=== PATIENT | male | born 1965 | race Caucasian/White ===

== ENCOUNTER 2018-11-03 07:40 | Day surgery (SDC) | payer OTHER ==
[~2018-11-03] VITALS: Ht 172.7 cm; Wt 90.3 kg
[~2018-11-03 07:40] MED LIST: AMLODIPINE
[2018-11-03] MEDS ORDERED: LIDOCAINE 4% SOLUTION 50 ML BTL ONE (08:14)
[2018-11-03 08:22] VITALS: Ht 172.7 cm; Wt 90.3 kg
[2018-11-03 08:30] VITALS: BP 117/79; PULSE 65; RESP 18
[2018-11-03] MEDS ORDERED: FENTAnyl 50 MCG/ML VIAL ONE (09:28)
[2018-11-03] MEDS ORDERED: MIDAZOLAM 1 MG/ML 2 ML INJ ONE ×3 (09:29)
[2018-11-03 09:40] VITALS: BP 123/82; RESP 20
== END 2018-11-03 12:58 | disposition home or self-care (01) ==
LOC: GIL 07:40
PROVIDERS: ATTEND Internal Medicine Gastroenterology
DX: Z12.11 Encounter for screening for malignant neoplasm of colon (principal); K64.0 First degree hemorrhoids; K29.30 Chronic superficial gastritis without bleeding; I10 Essential (primary) hypertension
CPT/HCPCS: 43239; 45378; 88305; 88312; J2250; J3010